=== PATIENT | female | born 2000 | race American Indian/Alaskan Native ===

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

== ENCOUNTER 2021-12-28 06:44 | Emergency (ER) | payer MEDICAID | END 2021-12-28 07:18 | disposition home or self-care (01) | LOC: DL.ED 06:44 | DX: H15.101 Unspecified episcleritis, right eye (principal); H10.31 Unspecified acute conjunctivitis, right eye | CPT/HCPCS: 99282 ==

== ENCOUNTER 2024-10-08 06:35 | Emergency (ER) | payer SELFPAY ==
[2024-10-08] MEDS: Ketorolac 30 MG/ML SDV IM ONE (07:26)
[2024-10-08] MEDS: Take Home: Cyclobenzaprine 10 MG Tab, 4 Tab Pack PO ONE (07:36)
== END 2024-10-08 07:43 | disposition home or self-care (01) ==
LOC: DL.ED 06:35
DX: M54.16 Radiculopathy, lumbar region (principal); Z88.0 Allergy status to penicillin
CPT/HCPCS: 96372; 99283; A9270; J1885